=== PATIENT | male | born 1995 | race Caucasian/White ===

== ENCOUNTER → 2016-09-06 | Emergency (ER) | payer BC ==
[2016-09-06 17:43] VITALS: BP 138/59
--- NOTE | 2016-09-06 20:52 | CONS ---
CONSULTATION NOTE: DATE OF CONSULT: 09/06/16 - EMERGENCY DEPT HISTORY OF PRESENT ILLNESS: The patient is a healthy 21-year-old male with no major medical problems, no chronic illnesses, no previous major issues. No chronic medications. He does have an ALLERGY TO AMOXICILLIN. He presents with acute pain in the right groin. He has a known hernia there for sometime and was working out at the gym and got a bulge, the size of an apricot which was acutely painful. He came to the emergency room. He has been waiting in the waiting area for over 2 hours and now states that it has actually improved. He has never had surgery on the abdomen. PHYSICAL EXAMINATION: He is a well-developed, well-nourished, muscular, slender gentleman consistent with stated age. Skin is warm and well perfused. He is not diaphoretic. He is not jaundiced. His vital signs are noted on the chart. Abdomen is soft, flat, nontender, and nondistended. There is no umbilical hernia. On the right groin, there is a right inguinal hernia, which clearly is reduced because I can feel thickening of the spermatic cord and I can feel an impulse at the canal but there is no herniation at present. The left side is normal. Testes are normally descended without palpable masses. IMPRESSION: A 21-year-old male with painful right inguinal hernia which may have been incarcerated on arrival, but has now reduced. At this point, he does not need emergency surgery or other emergency intervention. He is safe to be discharged and I will follow up with him in the office and arrange a semi- urgent hernia repair. CC: Kody Lawton MD; Alberto Quezada MD* [id number]/[facility] #: [id number] [facility]
== END | disposition home or self-care (01) ==
LOC: ED 15:54
DX: K40.90 Unilateral inguinal hernia, without obstruction or gangrene, not specified as recurrent (principal); Z88.0 Allergy status to penicillin
CPT/HCPCS: 99282

== ENCOUNTER 2016-09-13 08:55 | Day surgery (SDC) | payer BC ==
[~2016-09-13 08:55] MED LIST: Buffered Lidocaine 1% SYR 3ML* 3 ML/SYR SYRINGE INTRADERM ONE; Famotidine IV* 10 MG/ML 2 ML (20 mg) IV ONE
[2016-09-13] MEDS ORDERED: Famotidine IV* 10 MG/ML 2 ML (20 mg) ONE (09:20)
[2016-09-13] MEDS ORDERED: Clindamycin 900 MG IVPREMIX(* 900 MG/50 ML SDV IV ONE (09:21)
[2016-09-13] MEDS ORDERED: Ketorolac INJ* 30 MG/ML 1 ML VIAL ONE (09:51)
[2016-09-13] MEDS ORDERED: fentaNYL* 50 MCG/ML 2 ML VIAL (100 MCG VIAL) ONE (10:04)
[2016-09-13] MEDS ORDERED: Midazolam* 1 MG/ML 5 ML VIAL (5 MG) ONE (10:04)
[2016-09-13] MEDS ORDERED: Ondansetron INJ* 2 MG/ML VIAL ONE (10:05)
[2016-09-13] MEDS ORDERED: Propofol* 10 MG/ML 20 ML BTL IV PUSH ONE ×2 (10:05→11:28)
[2016-09-13] MEDS ORDERED: Lidocaine 2% PF * 5 ML VIAL ONE (10:05)
[2016-09-13] MEDS ORDERED: Dexamethasone IV* 4 MG/ML 1 ML (4 MG) ONE (10:05)
[2016-09-13] MEDS ORDERED: Lidocaine 1% INJ* 10 MG/ML 30 ML SDV ONE (10:14)
[2016-09-13] MEDS ORDERED: Bupivacaine 0.5% W/EPI SDV* 30 ML VIAL ONE (10:14)
[2016-09-13] MEDS ORDERED: DiMENhydriNATE IV* 50 MG/ML VIAL IV PUSH PRN (11:53)
[2016-09-13] MEDS ORDERED: oxyCODONE/Acetamin 5/325 MG* TAB PO PRN (11:53)
[2016-09-13] MEDS ORDERED: Acetaminophen TAB* 325 MG PO PRN (11:53)
[2016-09-13] MEDS ORDERED: Acetaminophen TAB* 325 MG ONE (12:39)
[2016-09-13 13:12] VITALS: BP 118/54
--- NOTE | 2016-09-14 01:58 | OP ---
DATE OF OPERATION: 09/13/16 - [facility] DATE OF : 89 SURGEON: Kody Lawton MD [facility] CENTER ADVISOR: None. ANESTHESIOLOGIST: Dr. Peterson. ANESTHESIA: LMAC anesthesia. PRE-OP DIAGNOSIS: Right inguinal hernia. POST-OP DIAGNOSIS: Right inguinal hernia. OPERATIVE PROCEDURE: Open repair of right inguinal hernia with mesh. DESCRIPTION OF PROCEDURE: The patient was supine on the operating room table. After adequate intravenous sedation, compression stockings, Beverley Hugger warmer, and intravenous antibiotics, the right groin was clipped and prepped with antiseptic and draped in a sterile fashion. Local infiltrative anesthesia was administered and approximately 1.5 to 2 inch right inguinal incision was created and dissection carried down to the external oblique, which was opened in the direction of its fibers. Cord structures were encircled with a [place] drain, tented upward. Indirect space hernia was identified, dissected free and reduced. Then a cone mesh plug was placed into the internal ring, sutured to the area with 2-0 Polysorb. Second piece of mesh was placed over the inguinal floor, sutured at the tubercle. Tails were split, brought around the cord structures, tacked down laterally. External oblique was closed over top with 2- 0 Polysorb, Vipin's with 3-0 Polysorb, skin with 4-0 Surgipro followed by sterile dressing. He tolerated the procedure well, was brought to Recovery in good condition. There were no complications, no drains, no pathologic specimens. Sponge and instruments counts correct. Estimated blood loss is 10 mL. CC: Sonido Bowles MD* [id number]/[facility] #: [id number] [facility]
== END 2016-09-13 14:06 | disposition home or self-care (01) ==
LOC: OR 08:55
PROVIDERS: ATTEND Surgery
DX: K40.90 Unilateral inguinal hernia, without obstruction or gangrene, not specified as recurrent (principal)
CPT/HCPCS: A9270-GY; C1781; J1100; J1885; J2250; J2405; J2704; J3010